=== PATIENT | female | born 1990 | race Two or more races ===

== ENCOUNTER 2025-02-04 01:06 | Emergency (ER) | payer OTHER ==
[~2025-02-04] VITALS: Ht 165.1 cm; Wt 61.4 kg
[2025-02-04 01:51] VITALS: BP 130/84; PULSE 98; RESP 20; TEMP 99.205376; O2SAT 99
[2025-02-04] MEDS: IBUPROFEN 600 MG TABLET PO ONE (02:41)
[2025-02-04] MEDS: HYDROCODONE/ACETAMINOPHEN 5-325 MG TABLET PO ONE (02:41)
[2025-02-04] MEDS: BACITRACIN 28 GM OINTMENT TP ONE (02:41)
[2025-02-04] MEDS: LIDOCAINE 1% 10 ML VIAL SQ ONE (02:41)
[2025-02-04] MEDS: PERTUSS(ACELL),DIPH,TET/PF 0.5 ML SYRINGE [ADULT] IM. ONE (02:42)
[2025-02-04] MEDS ORDERED: HYDR-4062 PO (03:42)
[2025-02-04] MEDS ORDERED: CEPH-558 PO (03:42)
[2025-02-04] MEDS ORDERED: IBUP-1554 PO (03:42)
[2025-02-04] MEDS ORDERED: BACI28.410 TP (03:42)
[2025-02-04] MEDS: CEPHALEXIN MONOHYDRATE 500 MG CAPSULE PO ONE (03:46)
== END 2025-02-04 04:16 | disposition home or self-care (01) ==
LOC: EMS 01:21
DX: S62.634B Displaced fracture of distal phalanx of right ring finger, initial encounter for open fracture (principal); S00.93XA Contusion of unspecified part of head, initial encounter; Y04.0XXA Assault by unarmed brawl or fight, initial encounter; Y93.89 Activity, other specified; Y92.89 Other specified places as the place of occurrence of the external cause; Y99.8 Other external cause status
CPT/HCPCS: 99285; 13120; 73140; 90715; 90471; J3490; 99284